=== PATIENT | male | born 1965 | race Caucasian/White ===

== ENCOUNTER → 2022-10-13 09:09 | Outpatient (BNVA) | payer SELFPAY | PROVIDERS: PCP Family Medicine; Visit Provider Family Medicine | DX: Z00.00 Encounter for general adult medical examination without abnormal findings (principal); E03.9 Hypothyroidism, unspecified | CPT/HCPCS: 80053; 80061; 84443 ==

== ENCOUNTER → 2023-08-08 09:58 | Outpatient (BNVA) | payer SELFPAY | PROVIDERS: PCP Family Medicine; Visit Provider Family Medicine | DX: Z00.00 Encounter for general adult medical examination without abnormal findings (principal); E03.9 Hypothyroidism, unspecified; Z13.6 Encounter for screening for cardiovascular disorders | CPT/HCPCS: 80053; 80061; 83036; 84443; 85025 ==

== ENCOUNTER 2024-01-14 15:59 | Outpatient (CLI) | payer SELFPAY ==
--- NOTE | 2024-01-14 16:00 | CT_ITS ---
WS: [id number] CT SINUSES TECHNIQUE: Noncontrast CT of the paranasal sinuses with coronal and sagittal reformatted images. CLINICAL INFORMATION: J32.9 - Chronic sinusitis, unspecified COMPARISON: None. DLP: 373.[address] scans at [facility] use at least one of these dose optimization techniques: automated e xposure control; mA and/or kV adjustment per patient size (includes targeted exams where dose is matc hed to clinical indication); or iterative reconstruction. FINDINGS: Mild RIGHT to LEFT nasal septal deviation measuring 2 mm. Leftward directed spur. Frontal sinuses are well aerated. Mild mucosal thickening in the ethmoid air cells. Maxillary sinuses are well aerated. Sphenoid sinuses are well aerated. Trace mucosal thickening along the sphenoid sinus ostia. Mild muco doni thickening along the frontoethmoidal recesses. Ostiomeatal units are patent. Partially visualized mastoid air cells are well aerated. Normal posterior nasopharynx and parapharyngeal fat. Mild cavern ous carotid calcification. IMPRESSION: 1. Mild RIGHT to LEFT nasal septal deviation measuring 2 mm with a leftward directed spur. 2. Mild mucosal thickening in the paranasal sinuses. No air-fluid levels. 3. Mild narrowing of the ostiomeatal units bilaterally. 4. Mastoid air cells are well aerated. 5. Normal posterior nasopharynx.
== END 2024-01-14 16:00 | disposition home or self-care (01) ==
LOC: RAD 15:59
PROVIDERS: PCP Family Medicine; Visit Provider Family Medicine
DX: J32.9 Chronic sinusitis, unspecified (principal); J34.2 Deviated nasal septum; J34.89 Other specified disorders of nose and nasal sinuses
CPT/HCPCS: 70486

== ENCOUNTER 2025-07-29 14:40 | Outpatient (CLI) | payer SELFPAY ==
[2025-07-29 16:08] LABS: Hematocrit 45.8 % (37-53); Hemoglobin 15.10 g/dL (11.27-16.99); Mean Corpuscular HGB Conc 33.0 g/dL (30-55); Mean Corpuscular Hemoglobin 29.4 pg (27-33); Mean Corpuscular Volume 89.1 fl (82-101); Nucleated Red Blood Cells % 0 %; Platelet Count 265 10^3/cmm (157-399); Red Blood Count 5.14 10^6/uL (3.85-5.65); White Blood Count 5.57 10^3/uL (3.29-11.43)
[2025-07-29 16:44] LABS: Alanine Aminotransferase 23 U/L (0-41); Albumin Level 4.6 g/dL (3.5-5.2); Alkaline Phosphatase 99 U/L (40-130); Anion Gap 16.4 (5-19); Aspartate Amino Transferase 20 U/L (0-40); Blood Urea Nitrogen 31 mg/dL (6-20); Calcium 9.5 mg/dL (8.5-10.5); Carbon Dioxide 27 mmol/L (22-29); Chloride 99 mmol/L (98-107); Globulin 3.0 g/dL (1.3-4.6); Glucose 103 mg/dL (65-115); Osmolality Calculated 293 mOsm/kg (285-295); Potassium 4.4 mmol/L (3.5-5.1); Sodium 138 mmol/L (136-145); Thyroid Stimulating Hormone 23.71 uIU/mL (0.27-4.20); Total Protein 7.6 g/dL (6.6-8.7)
[2025-07-29 17:00] LABS: Estmated Average Glucose 131; Hemoglobin A1C 6.2 % (4.0-6.0)
== END 2025-07-29 14:41 | disposition home or self-care (01) ==
PROVIDERS: PCP Family Medicine; Visit Provider Family Medicine
DX: Z00.00 Encounter for general adult medical examination without abnormal findings (principal)
CPT/HCPCS: 36415; 80053; 82248; 83036; 84443; 85025